=== PATIENT | male | born 1980 | race Caucasian/White ===

== ENCOUNTER 2019-01-25 15:46 | Emergency (ER) | payer OTHER ==
[2019-01-25 15:50] VITALS: BP 115/70
--- NOTE | 2019-01-25 16:09 | EDPHY ---
General Time Seen by Provider: 01/25/19 15:58 Narrative: CLINICAL IMPRESSION: Forehead laceration ASSESSMENT/PLAN: 38-year-old male presents to the emergency department with an acute laceration above the left eyebrow after he was hit by a piece of automobile repair equipment. No loss of consciousness or altered mental status, GCS of 15, tetanus up-to-date, no associated headache, dizziness, vertigo, nausea or vomiting. Wound was anesthetized and repaired as per chart notes below. Wound care discussed, signs and symptoms of infection reviewed, warning signs return to ED sooner discussed discharge. DIFFERENTIAL DIAGNOSIS: includes but not limited to laceration of tendon or vascular structure, underlying fracture, laceration with retained FB ED PROCEDURES: Laceration Repair Verbal consent obtained by patient. Risks discussed, including but not limited to infection, pain, retained foreign body, need for additional repair, poor cosmetic result, tendon damage, nerve damage, poor wound healing, vascular damage. Alternatives to repair discussed. [place] protocol used to establish correct patient, procedure, equipment, sales support associate, and site. Anesthesia obtained by local infiltration. Anesthetized with 0.5% bupivacaine with epinephrine. Laceration location left eyebrow, length 3 cm, depth 4 mm, Repair type intermediate. Patient was prepped and draped in usual sterile fashion. Hemostasis achieved with direct pressure. Wound explored through full range of motion and entire depth of wound probed and visualized with gloved finger. No suspicion for nerve damage, tendon damage, underlying fracture, vascular damage, foreign body, or contamination. Area was cleansed with Shur-Clens and irrigated with sterile saline as per protocol. No foreign body or material removed. Repair method 5-0 Vicryl subcutaneous sutures, #4., 6-0 Prolene superficial sutures #8. . 12 sutures placed. Well aligned, closely approximated. wound was dressed with bacitracin and Band-Aid. Patient tolerated well with no immediate complications. Wound care: Clean and dry x 24 hours, gently clean with soap and water, cover with topical antibiotic ointment/bandage. Suture/Staple removal: 5 Days CHIEF COMPLAINT: Laceration HPI: 38-year-old male presents to the emergency department with an acute laceration above the left eyebrow after he was accidentally hit in the head by a piece of auto machinery. He reports no loss of consciousness or altered mental status. This occurred approximately an hour and 45 min ago. He was sent from urgent care. He reports no headache, dizziness, vertigo. He is not anticoagulated. No other injuries. Tetanus up-to-date. PAST MEDICAL HISTORY: No significant past medical or surgical history. Tetanus up-to-date REVIEW OF SYSTEMS: All other systems negative Constitutional: No fever, no chills Skin: Forehead laceration Neurological: No sensory loss or weakness, 2 point discrimination intact. PHYSICAL EXAM: General Appearance: Alert, oriented, appropriate for age, cooperative, NAD, well hydrated, non-toxic appearing, VSS, no hypoxia. Neurological: Alert and oriented x 3 Skin: 3 cm vertically oriented laceration above the left eyebrow Musculoskeletal: Full range of motion of the neck, no midline pain MEDICAL DECISION MAKING: Patient was seen independently. Secondary supervising physician at time of evaluation was Dr. Montoya. Diagnosis: Eyebrow laceration. New, requires workup Summary: See assessment and plan for summary of ED visit Patient Progress stable for discharge. - History Smoking Status: Never smoked - Objective Vital Signs: Initial Vital Signs Temperature (C) 36.6 C 01/25/19 15:48 Heart Rate 65 01/25/19 15:48 Respiratory Rate 18 01/25/19 15:48 Blood Pressure 115/70 01/25/19 15:48 O2 Sat (%) 95 01/25/19 15:48 O2 Delivery Mode Room Air Allergies/Adverse Reactions: No Known Allergies Allergy (Unverified 01/25/19 15:47) Home Medications: Medication Instructions Recorded NK [No Known Home Meds] 01/25/19 Departure - Departure Disposition: Home, Routine, Self-Care Clinical Impression: Forehead laceration Qualifiers: Encounter type: initial encounter Qualified Code(s): S01.81XA - Laceration without foreign body of other part of head, initial encounter Condition: Good Instructions: Laceration (ED) Additional Instructions: DISCHARGE INSTRUCTIONS FROM YOUR DOCTOR Thank you for visiting our emergency department today. You were treated by a physician assistant art director today and your case was reviewed with our ED Attending physician. Please keep in mind that discharge from the emergency department does not mean that there is nothing wrong - it simply means that we have not identified an emergency condition that requires further evaluation or treatment in the hospital. You should always plan to follow up with primary care for re- evaluation of your condition in the next 2-3 days. If you have been referred to a specialist, please call as soon as possible (today or tomorrow) to schedule your follow up appointment at the appropriate time. PLEASE HAVE SUTURES/ARSEN REMOVED IN 5 DAYS. YOU CAN RETURN TO THE EMERGENCY DEPARTMENT OR YOUR PRIMARY CARE FOR SUTURE/STAPLE REMOVAL. AVOID SUBMERGING SUTURES/ARSEN UNDERWATER FOR PROLONGED PERIOD OF TIME UNTIL REMOVED. KEEP WOUND CLEAN AND DRY, COVER WITH ANTIBIOTIC OINTMENT AND BAND-AID. RETURN TO EMERGENCY DEPARTMENT FOR REDNESS, SWELLING, DISCHARGE, WARMTH TO THE SKIN, OR ANY OTHER CONCERNS FOR INFECTION. People present with illnesses and injuries in different ways, and it is always possible that we have missed something. You may always return for re-evaluation if symptoms worsen or if they are not improving or if you develop new/different symptoms. Again, thank you for choosing our emergency department. We hope that you feel better. Referrals: Param Kaufman MD [Medical Doctor] - As per Instructions NONE *PRIMARY CARE P,. [Primary Care Provider] - 5-7 days, call for appt.
== END 2019-01-25 16:42 | disposition home or self-care (01) ==
PROC: 08QPXZZ Repair Left Upper Eyelid, External Approach (ICD-10-PCS; principal; 2019-01-25)
DX: S01.112A Laceration without foreign body of left eyelid and periocular area, initial encounter (principal); W22.8XXA Striking against or struck by other objects, initial encounter